=== PATIENT | male | born 1980 | race African-American/Black ===

== ENCOUNTER 2016-11-06 09:43 | Day surgery (SDC) | payer MEDICARE, OTHER ==
[~2016-11-06 09:43] MED LIST: ASAB PO; ATEN100 PO; NEPHRO PO; NORV10 PO; PHOSLO PO; PRIN20 PO
== END 2016-11-06 23:59 | disposition home or self-care (01) ==
LOC: SDC 09:43
DX: N18.6 End stage renal disease (principal); Z53.29 Procedure and treatment not carried out because of patient's decision for other reasons
CPT/HCPCS: 80048; 85014; 85018